=== PATIENT | female | born 1970 | race Caucasian/White ===

== ENCOUNTER → 2022-01-29 | Outpatient (CLI) | payer OTHER | LOC: HEART 5 08:55 | DX: J20.9 Acute bronchitis, unspecified (principal); R10.11 Right upper quadrant pain; J30.9 Allergic rhinitis, unspecified; F41.9 Anxiety disorder, unspecified; M19.90 Unspecified osteoarthritis, unspecified site; M35.9 Systemic involvement of connective tissue, unspecified | CPT/HCPCS: 94060; 94729 ==